=== PATIENT | female | born 2000 | race Caucasian/White ===

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

== ENCOUNTER 2021-06-28 00:14 | Emergency (ER) | payer MEDICAID ==
[~2021-06-28] VITALS: Ht 165.1 cm; Wt 77.3 kg
[2021-06-28 00:22] VITALS: BP 112/73
[2021-06-28] MEDS ORDERED: neomy sulf/polymyx B sulf/HC 10ml otic suspension RIGHT EAR ONE (03:55)
== END 2021-06-28 04:28 | disposition home or self-care (01) ==
LOC: ER 00:15
DX: H61.21 Impacted cerumen, right ear (principal)
CPT/HCPCS: 69209; 99282

== ENCOUNTER 2021-11-07 00:20 | Emergency (ER) | payer MEDICAID ==
[~2021-11-07] VITALS: Ht 165.1 cm; Wt 77.3 kg
[2021-11-07] MEDS ORDERED: ibuprofen tablet 400 MG TABLET PO ONE (01:20)
[2021-11-07 01:33] VITALS: BP 120/76
== END 2021-11-07 01:34 | disposition home or self-care (01) ==
LOC: ER 00:21
DX: R07.89 Other chest pain (principal); R07.81 Pleurodynia; F41.9 Anxiety disorder, unspecified; Z87.440 Personal history of urinary (tract) infections; Z79.2 Long term (current) use of antibiotics; Z79.899 Other long term (current) drug therapy
CPT/HCPCS: 99282

== ENCOUNTER 2021-11-28 02:23 | Emergency (ER) | payer MEDICAID | END 2021-11-28 02:57 | disposition left against medical advice (07) | LOC: ER 02:24 | DX: Z00.8 Encounter for other general examination (principal); Z53.21 Procedure and treatment not carried out due to patient leaving prior to being seen by health care provider ==